=== PATIENT | male | born 1965 | race Caucasian/White ===

== ENCOUNTER 2017-05-12 04:35 | Inpatient (IN) | payer OTHER ==
[~2017-05-12] VITALS: Ht 190.5 cm; Wt 131.0 kg
[2017-05-12 05:06] LABS: HEMATOCRIT 42.1 % (38.0-50.0); MCH 30.5 PG (29.0-34.0); MCHC 34.7 G/DL (30.0-36.0); MCV 88.1 FL (86-99); MEAN PLAT.VOLUME 9.8 uM^3 (9.0-12.4); PLATELET COUNT 212 K/uL (156-360); RBC DIS.WIDTH-CV 12.6 % (11.8-14.6); RBC DIS.WIDTH-SD 40.5 % (39-53); RED BLOOD COUNT 4.78 M/uL (4.00-5.50)
[2017-05-12 05:18] LABS: CHLORIDE 101 mEq/L (99-109); POTASSIUM 4.1 mEq/L (3.7-5.4); SODIUM 134 mEq/L (136-147)
[2017-05-12 05:19] LABS: GLUCOSE 132 mg/dL (70-99)
[2017-05-12 05:21] LABS: ANION GAP 12 MEQ/L (2-14)
[2017-05-12 05:23] LABS: GFR ESTIMATE (CALCULATED) > 59 mL/min/
[2017-05-12 05:24] LABS: UREA NITROGEN (BUN) 15 mg/dL (9-23)
[2017-05-12 05:41] LABS: TROP-I INTERPRETATION NEGATIVE; TROPONIN-I 0.03 ng/mL (0.0-0.30)
[2017-05-12 08:46] LABS: HDL CHOLESTEROL 30 MG/DL (Desirable>=40); LDL CHOLESTEROL 114 mg/dL (Desirable<100); NON-HDL CHOLESTEROL 170 mg/dL (Desirable<160); SAMPLE HEMOLYSIS CHECK 0; SAMPLE ICTERIC CHECK 0; SAMPLE LIPEMIA CHECK 0; TOTAL CHOLESTEROL 200 mg/dL (Desirable<200); TRIGLYCERIDES 281 MG/DL (Normal: <150)
[2017-05-12 09:00] VITALS: BP 151/97
[2017-05-12 11:12] LABS: TROP-I INTERPRETATION INDETERMINATE; TROPONIN-I 0.41 ng/mL (0.0-0.30)
[2017-05-12 11:43] VITALS: BP 140/93
[2017-05-12 15:37] LABS: INTER. NORMALIZED RATIO 1.1; PROTHROMBIN TIME 12.2 SEC (10.2-12.9)
[2017-05-12 15:40] LABS: PTT 89.7 SEC (25-37)
[2017-05-12 16:30] VITALS: BP 145/88
[2017-05-12 16:36] LABS: TROPONIN-I 2.22 ng/mL (0.0-0.30)
[2017-05-12 16:44] LABS: TROP-I INTERPRETATION POSITIVE
[2017-05-12 21:10] VITALS: BP 141/89
[2017-05-12 22:59] LABS: TROP-I INTERPRETATION POSITIVE
[2017-05-13] VITALS: BP 148/66
[2017-05-13 04:00] VITALS: BP 134/84
[2017-05-13] MEDS ORDERED: NITROSTAT0.4 MG SL (07:24)
[2017-05-13] MEDS ORDERED: ONDANSETRON4 MG/2 ML IV (07:24)
[2017-05-13] MEDS ORDERED: ASPIR-LOW81 MG PO (07:24)
[2017-05-13] MEDS ORDERED: LOPRESSOR25 MG PO (07:24)
[2017-05-13] MEDS ORDERED: PRAVASTATIN SOD40 MG PO (07:24)
[2017-05-13] MEDS ORDERED: HEPARIN SO25000 UNIT IV (07:25)
[2017-05-13 07:32] VITALS: BP 124/83
== END 2017-05-13 09:51 | disposition short-term general hospital (02) | DRG 281 ==
LOC: EME → EDBD 04:35 → EDOF 07:39 → 5WEST 07:39 → ENRESERV 07:41 → 5WEST 08:41 → ENRESERV 12:52 → 5WEST 12:53 → 4EAST 14:37 → 5WEST 14:37 → 4EAST 14:37 → 5WEST 14:37 → ENRESERV 14:46 → 4EAST 16:36
PROVIDERS: Emergency Medicine; Hospitalist; Internal Medicine Cardiovascular Disease
DX: I25.110 Atherosclerotic heart disease of native coronary artery with unstable angina pectoris (principal); I21.4 Non-ST elevation (NSTEMI) myocardial infarction; I25.82 Chronic total occlusion of coronary artery; E78.5 Hyperlipidemia, unspecified; I10 Essential (primary) hypertension; E66.9 Obesity, unspecified; Z68.36 Body mass index [BMI] 36.0-36.9, adult; Z82.49 Family history of ischemic heart disease and other diseases of the circulatory system; Z87.891 Personal history of nicotine dependence
CPT/HCPCS: 71020; 80048; 80061; 83880; 84484; 85027; 85347; 85610; 85730; 93005; 99281; 99285; C1769; C1887; J1644; J2250; J3010; J7040